=== PATIENT | female | born 1955 | race Caucasian/White ===

== ENCOUNTER 2018-08-07 20:41 | Emergency (ER) | payer OTHER ==
[~2018-08-07] VITALS: Ht 162.6 cm; Wt 52.6 kg
[~2018-08-07 20:41] MED LIST: HYDR1TAB PO; MULT-1045 PO; TRAZODONE PO; VITAMIN C PO; ZOLP10TA2 PO
[2018-08-07] MEDS ORDERED: ESCITALOPRAM OXALATE 10 MG TAB (20:56)
[2018-08-07] MEDS ORDERED: NAPROXEN 500 MG TABLET PO ONE (21:15)
[2018-08-07] MEDS ORDERED: TDAP DIPH,PERTUSS,TET VAC/PF 0.5 ML DISP.SYRIN IM ONE ×2 (21:15→21:40)
[2018-08-07] MEDS ORDERED: HYDROCODONE/APAP 5-325MG TABLET PO ONE (21:30)
[2018-08-07] MEDS ORDERED: HYDROCODONE/APAP 5-325MG TABLET ONE (21:39)
--- NOTE | 2018-08-07 21:40 | NUR ---
Accompanied MD to bedside for evaluation. Pt has multiple abrasions to left buttock. pt states she was in [place] & fell on [place].
--- NOTE | 2018-08-07 22:01 | NUR ---
Patient discharged to home in stable conditon. Written and verbal after care instructions given. Patient verbalizes understanding of instructions. Pt ambulated out of ER in stable gait with who will drive home. All belongings w pt. VSS. NAD noted.
[2018-08-07 22:07] VITALS: BP 147/92
== END 2018-08-07 22:07 | disposition home or self-care (01) ==
LOC: ER 20:44
DX: S30.850A Superficial foreign body of lower back and pelvis, initial encounter (principal); Z79.899 Other long term (current) drug therapy; X58.XXXA Exposure to other specified factors, initial encounter; Y93.89 Activity, other specified; Y92.89 Other specified places as the place of occurrence of the external cause; Y99.8 Other external cause status
CPT/HCPCS: 90715; A4663

== ENCOUNTER 2018-09-30 18:27 | Emergency (ER) | payer OTHER ==
[~2018-09-30] VITALS: Ht 162.6 cm; Wt 52.6 kg
[~2018-09-30 18:27] MED LIST changes: +ESCITALOPRAM OXALATE 10 MG TAB; -HYDR1TAB PO
[2018-09-30] MEDS ORDERED: ACETAMINOPHEN 325 MG TABLET PO ONE (19:45)
[2018-09-30] MEDS ORDERED: ACETAMINOPHEN 325 MG TABLET ONE (19:53)
--- NOTE | 2018-09-30 19:53 | NUR ---
Patient removed cervical collar in frustration in front of staff, attempted to replace and educate patient regarding its use and potential complications. Patient allowed staff to replace after several minutes.
--- NOTE | 2018-09-30 21:00 | NUR ---
DR TOBAR MADE PATIENT AWARE OF TEST RESULTS. WILL DC HOME.
--- NOTE | 2018-09-30 21:14 | NUR ---
Patient discharged to home in stable conditon. Written and verbal after care instructions given. Patient verbalizes understanding of instructions.
[2018-09-30 21:16] VITALS: BP 141/79
== END 2018-09-30 21:20 | disposition home or self-care (01) ==
LOC: ER 18:29
DX: S40.012A Contusion of left shoulder, initial encounter (principal); S80.02XA Contusion of left knee, initial encounter; S60.222A Contusion of left hand, initial encounter; S13.4XXA Sprain of ligaments of cervical spine, initial encounter; S09.90XA Unspecified injury of head, initial encounter; E78.5 Hyperlipidemia, unspecified; Z79.899 Other long term (current) drug therapy; V49.9XXA Car occupant (driver) (passenger) injured in unspecified traffic accident, initial encounter; Y93.89 Activity, other specified; Y92.410 Unspecified street and highway as the place of occurrence of the external cause; Y99.8 Other external cause status
CPT/HCPCS: 70450; 71045; 72125; 73030; 73130; A4663